=== PATIENT | female | born 2005 | race Caucasian/White ===

== ENCOUNTER 2024-04-17 23:07 | Observation (INO) | payer BC, OTHER, SELFPAY ==
--- NOTE | ~2024-04-17 | US_ITS ---
US renal BI Ordering provider: Rocky Rabago MD History: . Right flank pain . Comparison: None. Technique: Ultrasound bilateral kidneys. Findings: RIGHT KIDNEY: Measures 13.4x 5.7x 4.7 cm in length which is normal in size. No renal cysts. No renal mass or visualized echogenic stones. Otherwise, normal echotexture and contour. moderate hydronephro sis. Normal renal cortical thickness. LEFT KIDNEY: Measures 11.6x 5.6x 4.6 cm in length which is normal in size. No renal cysts. No renal m ass or visualized echogenic stones. Otherwise, normal echotexture and contour. moderate hydronephrosi s. Normal renal cortical thickness. BLADDER: Underfilled. Ureteral jets were not seen bilaterally. IMPRESSION: Bilateral mild to moderate hydronephrosis. Reviewed, dictated and finalized at location A. YLENE GAS COMPRESSOR
--- NOTE | ~2024-04-17 | US_ITS ---
Limited ABDOMINAL ULTRASOUND Ordering provider: Rocky Rabago MD History: . Right sided pain; Check gallbladder and appendix . Comparison: None. FINDINGS: LIVER: Normal size and echotexture. No focal hepatic lesions or perihepatic fluid collections are brett ntified. Normal flow of the portal vein. GALLBLADDER: Unremarkable. No evidence for stones, sludge, gallbladder wall thickening or pericholecy stic fluid collections. A negative sonographic Davila's sign was noted. BILIARY DUCTS: No evidence for intra or extrahepatic biliary dilation. Common bile duct measures 2.3 mm in diameter which is within normal limits. PANCREAS: Normal echotexture and size. tail is partly visualized. UPPER ABDOMINAL AORTA: Normal in caliber. IVC: Patent. FREE FLUID: None. IMPRESSION: Unremarkable limited ultrasound of the abdomen. Reviewed, dictated and finalized at location A. PICKLER
--- NOTE | ~2024-04-17 | US_ITS ---
EXAMINATION: US OB BPP wo non-stress DATE: 04/18/2024 17:19 INDICATION: Nonreactive nonstress test. Third trimester. TECHNIQUE: Real-time pelvic ultrasound was performed. COMPARISON: None. FINDINGS: There is a single living fetus in transverse lie. The placenta is posterior. heart rate is 139 beats per minute (bpm). Biophysical profile performed by the technologist: breathing (30 sec sustained breathing in 30 minutes): 2 out of 2 movement (3 gross body movements in 30 minutes): 2 out of 2 tone (one episode of riylxsd-nuyebhlea-idjuxoj limb movement): 2 out of 2 Amniotic fluid pocket (2 cm): 2 out of 2 Total score: 8 out of 8 IMPRESSION: 1. Single living fetus in transverse lie. 2. Biophysical profile 8 out of 8. Reviewed, dictated and finalized at location A. ELECTRICIAN
--- NOTE | ~2024-04-17 | MR_ITS ---
EXAMINATION: MR abdomen wo con DATE: 04/18/2024 10:58 INDICATION: Right abdominal pain. TECHNIQUE: Magnetic resonance imaging (MRI) of the abdomen was performed without intravenous contrast . COMPARISON: Ultrasound 04/18/2024 FINDINGS: The liver, gallbladder, spleen, pancreas, and adrenal glands are normal. There is mild bilateral hydr onephrosis and hydroureter. There are no dilated loops of bowel. The appendix is not visualized. Ther e is a single intrauterine gestation in vertex presentation. The placenta is posterior. IMPRESSION: 1. Mild bilateral maternal hydronephrosis and hydroureter. 2. Appendix not visualized. Reviewed, dictated and finalized at location A. NG COACH
[2024-04-17 23:30] VITALS: TEMP 36.3
[2024-04-17 23:34] VITALS: BP 136/77; PULSE 100
[2024-04-17 23:51] VITALS: BMI 35.2
--- NOTE | 2024-04-17 23:52 | OBADM ---
This patient, Melly Olvera, admitted to the OB room OB Post 117 for observation. Patient/family oriented to hospital policies and general routines including ID bracelet, bed and alarms, visiting hours, pain management, procedures, bathroom and other care routines, personal items, smoking policy, room service/diet, and visiting hours. Patient/Family are encouraged to report perceived risks to care and to ask questions if they do not understand what they are told or what they should do.
[2024-04-17] MEDS: ACETAMINOPHEN 500 MG TABLET 1000 MG PO (23:59)
[2024-04-18] VITALS (10 sets, daily range): BP systolic 116–126; BP diastolic 61–74; PULSE 79–96; RESP 16–18; TEMP 36.3–36.8; O2SAT 92–98
[2024-04-18 00:18] LABS: Appearance Urine Clear (Clear); Bilirubin Urine Negative (Negative); Blood Urine 2+ (Negative); Color Urine Yellow (Yellow); Glucose Urine UA Negative (Negative); Ketones Urine Negative (Negative); Leukocyte Esterase Ur 1+ LEU/UL (Negative); Nitrate Urine Negative (Negative); Protein Urine Negative (Negative); Specific Grav Ur 1.009 (1.001-1.035); Urobilinogen Urine 0.2 mg/dL (<2.0); pH Urine 6.5 (5.0-9.0)
[2024-04-18 00:19] LABS: Add Urine Microscopic? YES; Bacteria Urine Rare /hpf; Need Manual Microscopic Reviewed; Non Pathogenic Casts 0-2; Squamous Epithelial Cell Urine Occasional /hpf (Few); WBC Urine 0-5 /hpf (0-3)
[2024-04-18] MEDS: HYDROcodone/acetaminophen (*CRX) 10-325 MG TABLET 1 TAB PO (01:11)
[2024-04-18] MEDS: LACTATED RINGERS 1,000 ML 125 ML IV CONT ×3 (01:12→18:59)
[2024-04-18 01:21] LABS: Hematocrit 32.5 % (37.0-47.0); Hemoglobin 10.5 g/dL (12.0-15.0); Mean Corpuscular HGB Conc 32.3 g/dl (32-36); Mean Corpuscular Volume 80.4 fl (80-100); Platelet Count Result 190 k/mm3 (150-375); Red Blood Count 4.04 M/mm3 (4.2-5.4); Red Cell Distribution Width 13.3 % (11.5-14.5); White Blood Count 14.8 K/mm3 (4.5-10.0)
[2024-04-18 01:23] LABS: Alanine Aminotransferase 21 U/L (6-35); Albumin Level 3.9 g/dL (3.7-5.6); Alkaline Phosphatase 136 U/L (45-116); Anion Gap 11 mmol/L (4-12); Aspartate Amino Transferase 25 U/L (14-36); Bilirubin,Total 0.5 mg/dL (0.2-1.3); Blood Urea Nitrogen 8 mg/dL (8-21); Calcium 9.2 mg/dL (8.9-10.7); Carbon Dioxide 19 mmol/L (22-30); Chloride 104 mmol/L (98-107); Estimated CRCL calculation 88 ml/min; Estimated Glomerular Filt Rate > 60; Glucose 99 mg/dL (65-110); Potassium 3.7 mmol/L (3.4-5.0); Sodium 134 mmol/L (134-143)
--- NOTE | 2024-04-18 06:25 | P.HP_ITS ---
H&P: HPI History of Present Illness Date/Time: 04/18/24 06:25 Chief Complaint: right flank pain Narrative: 18 para 0 who receives her care from somewhere known seen complaining right flank pain. She was seen yesterday sent. She complains of and severe medial sided pain which required narcotics on admission she is admitted for observation Meds Home Medications and Allergies Allergies Allergy/AdvReac Type Severity Reaction Status Date / Time almond Allergy Rash Verified 04/17/24 23:48 Vital Signs Vital Signs - 24 hr 04/17/24 23:34 04/17/24 23:30 04/17/24 23:51 Temperature 97.4 F L Pulse Rate 100 Blood Pressure 136/77 Oxygen Delivery Room Air Exam Const: General: cooperative and healthy appearing Nutritional Appearance: average body habitus Orientation/consciousness: oriented to person, oriented to place and oriented to time HENMT: Head: normal to inspection Resp: Effort & Inspection: normal respiratory effort Cardio: Rate: regular rate Rhythm: regular rhythm Heart sounds: S1 normal heart sound present and S2 normal heart sound present GI: Inspection: normal to inspection ( gravid soft uterus) : General: Yes CVA tenderness on the right External Female Exam: normal external appearance H&P: Results Labs Labs: Short CBC 04/18/24 Range/Units 00:58 WBC 14.8 H (4.5-10.0) K/mm3 Hgb 10.5 L (12.0-15.0) g/dL Hct 32.5 L (37.0-47.0) % Plt Count 190 (150-375) k/mm3 BMP 04/18/24 00:58 Sodium 134 Potassium 3.7 Chloride 104 Carbon Dioxide 19 L BUN 8 Creatinine 1.00 Glucose 99 Calcium 9.2 Liver Function 04/18/24 Range/Units 00:58 Total Bilirubin 0.5 (0.2-1.3) mg/dL AST 25 (14-36) U/L ALT 21 (6-35) U/L Alkaline Phosphatase 136 H (45-116) U/L Albumin 3.9 (3.7-5.6) g/dL Urine 04/17/24 Range/Units 23:41 Urine Color Yellow (Yellow) Urine Appearance Clear (Clear) Urine pH 6.5 (5.0-9.0) Ur Specific [place] 1.009 (1.001-1.035) Urine Protein Negative (Negative) mg/dL Urine Glucose (UA) Negative (Negative) mg/dL Assessment and Plan Assessment and plan (1) Third trimester : Code(s): Z34.93 - Encounter for supervision of normal , unspecified, third trimester Status: Acute (2) Right flank pain: Code(s): R10.9 - Unspecified abdominal pain Status: Acute Assessment and Plan: with the patient's elevated white count but normal-appearing sample will check ultrasound to rule out kidney stones gallbladder or appendix today.
--- NOTE | 2024-04-18 06:28 | PC.NURSE ---
Dr. Luisana Rabago in to see and assess pt. Pt remains afebrile. Waiting for U/S. Pt remains NPO. Order received to start antibiotics. Pt instructed to let me know if her pain gets worse and I will get an order for IV pain medicine while she is NPO for the U/S of gallbladder.
[2024-04-18] MEDS: HYDROcodone/acetaminophen (*CRX) 5-325 MG TABLET 1 TAB PO ×3 (08:19→15:28)
--- NOTE | 2024-04-18 08:35 | PC.NURSE ---
Dr. Luisana Rabago returned page and informed of U/S report. Pt denies nausea, but doesn't feel hungry either. Pt did accept some applesauce.
--- NOTE | 2024-04-18 08:35 | PC.NURSE ---
Order received for MRI to evaluate ureters and appendix.
--- NOTE | 2024-04-18 08:42 | PC.NURSE ---
Called MRI department to see how to order MRI on this [address] Luisana Rabago wants her ureters and appendix evaluated. jewelry technician checking with radiologist and will call me back.
--- NOTE | 2024-04-18 10:04 | PC.NURSE ---
MRI control room informed pt has completed her MRI safety screening form.
--- NOTE | 2024-04-18 10:13 | PC.NURSE ---
Radiology transport here to take pt to MRI per wheelchair.
--- NOTE | 2024-04-18 11:05 | PC.NURSE ---
Pt is back from MRI and IV fluids restarted.
--- NOTE | 2024-04-18 12:18 | PC.NURSE ---
Dr. Luisana Rabago on unit and informed pt's pain decreased to a 4 after oral meds; MRI results not back yet.
--- NOTE | 2024-04-18 16:38 | PC.NURSE ---
Called Dr. Luisana Rabago. Informed of nonreactive NST with 15x15 variables. BPP ordered.
[2024-04-18] MEDS: HYDROcodone/acetaminophen (*CRX) 5-325 MG TABLET PO ×2 (18:22→22:17)
[2024-04-19 00:23] VITALS: BP 100/54; PULSE 94; TEMP 36.6
[2024-04-19 00:28] VITALS: BP 100/54; PULSE 94
[2024-04-19] MEDS: LACTATED RINGERS 1,000 ML 125 ML IV CONT (03:00)
[2024-04-19 05:55] VITALS: BP 119/64; PULSE 100; TEMP 36.6
[2024-04-19] MEDS: HYDROcodone/acetaminophen (*CRX) 5-325 MG TABLET PO (05:59)
[2024-04-19 06:05] LABS: Basophils Percent Auto 0.4 % (0.2-1.2); Eosinophils Absolute Auto 0.2 K/mm3 (0-0.3); Eosinophils Percent Auto 1.8 % (0-4.4); Hematocrit 30.2 % (37.0-47.0); Hemoglobin 9.7 g/dL (12.0-15.0); Immature Granulocyte Absolute 0.11 K/mm3 (0.00-0.031); Immature Granulocyte Percent A 1.3 % (0-0.5); Lymphocytes Absolute Auto 1.47 K/mm3 (0.9-3.2); Lymphocytes Percent Auto 17.7 % (18.3-44.2); Mean Corpuscular HGB Conc 32.1 g/dl (32-36); Mean Corpuscular Hemoglobin 26.3 pg (26-34); Mean Corpuscular Volume 81.8 fl (80-100); Mean Platelet Volume 9.5 fl (7.4-10.4); Monocytes Absolute Auto 0.6 K/mm3 (0.1-0.6); Monocytes Percent Auto 7.1 % (2.6-8.5); Neutrophils Percent Auto 71.7 % (45.5-73.1); Platelet Count Result 185 k/mm3 (150-375); Red Blood Count 3.69 M/mm3 (4.2-5.4); Red Cell Distribution Width 13.5 % (11.5-14.5); White Blood Count 8.3 K/mm3 (4.5-10.0)
--- NOTE | 2024-04-19 07:21 | PM.OBPNVD ---
OB - PN: Subj Subjective Date/time seen: 04/19/24 07:21 Patient comments: pain well controlled Narrative: feling better . will try eating OB - PN: Obj Data Labs 04/19/24 05:50 04/18/24 00:58 Labs: Laboratory Results - last 24 hr 04/19/24 05:50 WBC 8.3 RBC 3.69 L Hgb 9.7 L Hct 30.2 L MCV 81.8 MCH 26.3 MCHC 32.1 RDW 13.5 Plt Count 185 MPV 9.5 Immature Gran % (Auto) 1.3 H Neut % (Auto) 71.7 Lymph % (Auto) 17.7 L [place] % (Auto) 7.1 Eos % (Auto) 1.8 Baso % (Auto) 0.4 Lymph # (Auto) 1.47 [place] # (Auto) 0.6 Eos # (Auto) 0.2 Baso # (Auto) 0.0 Abs Immat Gran (auto) 0.11 H Absolute Neuts (auto) 6.0 Absolute Nucleated RBC 0.000 Nucleated RBC % 0.0 Imaging Radiologist's impression: Impressions Abdomen Ultrasound 04/18/24 08:08 IMPRESSION: Unremarkable limited ultrasound of the abdomen. Renal Ultrasound 04/18/24 08:13 IMPRESSION: Bilateral mild to moderate hydronephrosis. Abdomen MRI 04/18/24 16:04 IMPRESSION: 1. Mild bilateral maternal hydronephrosis and hydroureter. 2. Appendix not visualized. Obstetrics US/Biophysical Profile 04/18/24 17:19 IMPRESSION: 1. Single living fetus in transverse lie. 2. Biophysical profile 8 out of 8. OB - PN A/P Plan Comments: feeling better. try full diet Time Spent With Patient Time: Total time spent is greater than 50% in coordination of care (as documented) at patient's floor/unit and/or counseling patient: Exam Const: General: cooperative, healthy appearing and comfortable Nutritional Appearance: average body habitus Orientation/consciousness: oriented to person, oriented to place and oriented to time Resp: Effort & Inspection: normal respiratory effort Cardio: Rate: regular rate Rhythm: regular rhythm Heart sounds: S1 normal heart sound present and S2 normal heart sound present GI: Inspection: normal to inspection GI Palp: Yes abdominal tenderness (better)
--- NOTE | 2024-04-19 09:18 | PM.OBPNVD ---
OB - PN: Subj Subjective Date/time seen: 04/19/24 09:18 Patient comments: no complaints, pain well controlled and tolerating diet OB - PN: Obj Data Labs 04/19/24 05:50 04/18/24 00:58 Labs: Laboratory Results - last 24 hr 04/19/24 05:50 WBC 8.3 RBC 3.69 L Hgb 9.7 L Hct 30.2 L MCV 81.8 MCH 26.3 MCHC 32.1 RDW 13.5 Plt Count 185 MPV 9.5 Immature Gran % (Auto) 1.3 H Neut % (Auto) 71.7 Lymph % (Auto) 17.7 L [place] % (Auto) 7.1 Eos % (Auto) 1.8 Baso % (Auto) 0.4 Lymph # (Auto) 1.47 [place] # (Auto) 0.6 Eos # (Auto) 0.2 Baso # (Auto) 0.0 Abs Immat Gran (auto) 0.11 H Absolute Neuts (auto) 6.0 Absolute Nucleated RBC 0.000 Nucleated RBC % 0.0 Imaging Radiologist's impression: Impressions Abdomen MRI 04/18/24 16:04 IMPRESSION: 1. Mild bilateral maternal hydronephrosis and hydroureter. 2. Appendix not visualized. Obstetrics US/Biophysical Profile 04/18/24 17:19 IMPRESSION: 1. Single living fetus in transverse lie. 2. Biophysical profile 8 out of 8. OB - PN A/P Plan Comments: home on cephlexin /pain meds Time Spent With Patient Time: Total time spent is greater than 50% in coordination of care (as documented) at patient's floor/unit and/or counseling patient:
--- NOTE | 2024-04-19 09:19 | PM.DS ---
DS: Admitting Diagnosis Discharge Date 04/19/2024 Admitting Diagnosis right flank pain DS: Discharge Diagnosis Discharge Diagnosis (1) Right flank pain: Code(s): R10.9 - Unspecified abdominal pain Status: Acute (2) Third trimester : Code(s): Z34.93 - Encounter for supervision of normal , unspecified, third trimester Status: Acute DS: Summary Hospital Course Reason for hospitalization: patient was admitted as a walk-in at 33 weeks gestation. She had been seen the day before and [facility] with the same complaints and was sent home. She apparently has had an unremarkable to this point and is 33 weeks gestation she underwent a series of tests with an elevated white count at 15 which normalized the 2 8 upon discharge. She had an MRI which was unremarkable besides bilateral hydronephrosis. Her pain improved although she did require occasional [place]. She received Rocephin daily and remained afebrile Hospital Course: please see Time Spent with Patient Time attestation: Total time spent providing and/or coordinating discharge services: Exam Const: General: cooperative, healthy appearing and comfortable Nutritional Appearance: average body habitus Orientation/consciousness: oriented to person, oriented to place and oriented to time Resp: Effort & Inspection: normal respiratory effort Cardio: Rate: regular rate Rhythm: regular rhythm Heart sounds: S1 normal heart sound present and S2 normal heart sound present GI: Inspection: normal to inspection ( gravid soft uterus) DS: Data Data Completed and Pending Labs on day of discharge: Labs from last 24 hours 04/19/24 05:50 WBC 8.3 RBC 3.69 L Hgb 9.7 L Hct 30.2 L MCV 81.8 MCH 26.3 MCHC 32.1 RDW 13.5 Plt Count 185 MPV 9.5 Immature Gran % (Auto) 1.3 H Neut % (Auto) 71.7 Lymph % (Auto) 17.7 L [place] % (Auto) 7.1 Eos % (Auto) 1.8 Baso % (Auto) 0.4 Lymph # (Auto) 1.47 [place] # (Auto) 0.6 Eos # (Auto) 0.2 Baso # (Auto) 0.0 Abs Immat Gran (auto) 0.11 H Absolute Neuts (auto) 6.0 Absolute Nucleated RBC 0.000 Nucleated RBC % 0.0 Discharge Plan Discharge Attending physician on discharge: Rocky Dorsey Discharging Clinician: Rocky Dorsey Patient Disposition: Home, Self-Care Activity: may shower, no straining and pelvic rest Diet: heart healthy Wound Care Instructions: follow printed instructions Patient Instructions: Antibiotic Form Stand Alone Forms: General Discharge Information Follow-up/Referrals: Rocky Dorsey MD [Physician] - Discharge Medications: New hydrocodone-acetaminophen 5-325 mg tablet 1 tablet PO Q4H PRN (Reason: pain) Qty: 20 0RF ondansetron 4 mg tablet,disintegrating 4 mg PO Q6H PRN (Reason: nausea and vomiting) Qty: 20 0RF cephalexin 500 mg tablet 500 mg PO Q12H Qty: 14 0RF Continued Flintstones Gummies Tablet,Chewable 2 tablet PO DAILY Date of admission: 04/17/24 23:07 Primary Care Provider: UNKNOWN,DOCTOR Admitting Provider: Rocky Dorsey Attending physician on admission: Rocky Dorsey Condition: Stable
== END 2024-04-19 09:40 | disposition home or self-care (01) ==
PROVIDERS: Admitting Provider Obstetrics & Gynecology; Visit Provider Obstetrics & Gynecology
DX: O26.893 Other specified pregnancy related conditions, third trimester (principal); R10.9 Unspecified abdominal pain; O99.891 Other specified diseases and conditions complicating pregnancy; N13.30 Unspecified hydronephrosis; Z3A.33 33 weeks gestation of pregnancy
CPT/HCPCS: 36415; 59025; 74181; 76705; 76775; 76819; 80053; 81001; 85025; 85027; 96365; 96366; A9270; G0378; G0379; J0696; J7120

== ENCOUNTER 2024-05-08 12:43 | Observation (INO) | payer BC, OTHER, SELFPAY ==
[2024-05-08] VITALS (8 sets, daily range): BP systolic 114–126; BP diastolic 72–84; PULSE 86–93; RESP 16; TEMP 36.9; BMI 34.8
--- NOTE | 2024-05-08 13:31 | OBADM ---
This patient, Melly Olvera, admitted to the OB room 116 for observation. Patient/family oriented to hospital policies and general routines including ID bracelet, bed and alarms, visiting hours, pain management, procedures, bathroom and other care routines, personal items, smoking policy, room service/diet, and visiting hours. Patient/Family are encouraged to report perceived risks to care and to ask questions if they do not understand what they are told or what they should do.
--- NOTE | 2024-05-10 06:03 | PM.OBTRLD ---
OB - Triage/Final Diagnosis Visit Information Reason for evaluation: threatened labor Comments/Additional reasons for admission: I have assessed the risk for this patient, Melly Olvera, and determined that she would benefit from observation care.
== END 2024-05-08 15:34 | disposition home or self-care (01) ==
PROVIDERS: Admitting Provider Obstetrics & Gynecology; Visit Provider Obstetrics & Gynecology
DX: O47.03 False labor before 37 completed weeks of gestation, third trimester (principal); Z3A.36 36 weeks gestation of pregnancy
CPT/HCPCS: G0378; G0379

== ENCOUNTER 2024-05-30 04:53 | Inpatient (IN) | payer OTHER, SELFPAY ==
[2024-05-30] VITALS (271 sets, daily range): BP systolic 90–169; BP diastolic 53–156; PULSE 58–159; RESP 17–18; TEMP 36.5–37.6; O2SAT 90–100; BMI 35.7
[2024-05-30 05:30] LABS: Basophils Percent Auto 0.4 % (0.2-1.2); Eosinophils Absolute Auto 0.1 K/mm3 (0-0.3); Eosinophils Percent Auto 1.1 % (0-4.4); Hematocrit 31.6 % (37.0-47.0); Hemoglobin 10.1 g/dL (12.0-15.0); Immature Granulocyte Absolute 0.14 K/mm3 (0.00-0.031); Immature Granulocyte Percent A 1.4 % (0-0.5); Lymphocytes Absolute Auto 1.75 K/mm3 (0.9-3.2); Lymphocytes Percent Auto 17.7 % (18.3-44.2); Mean Corpuscular Hemoglobin 24.8 pg (26-34); Mean Corpuscular Volume 77.5 fl (80-100); Mean Platelet Volume 9.9 fl (7.4-10.4); Monocytes Absolute Auto 0.6 K/mm3 (0.1-0.6); Monocytes Percent Auto 6.3 % (2.6-8.5); Neutrophils Absolute Auto 7.2 K/mm3 (1.3-6.7); Neutrophils Percent Auto 73.1 % (45.5-73.1); Platelet Count Result 231 k/mm3 (150-375); Red Blood Count 4.08 M/mm3 (4.2-5.4); Red Cell Distribution Width 14.3 % (11.5-14.5); White Blood Count 9.9 K/mm3 (4.5-10.0)
[2024-05-30] MEDS: AMPICILLIN 2 GM/NS 100 ML 2 GM/100 ML BAG IVPB (05:34)
[2024-05-30] MEDS: LACTATED RINGERS 1,000 ML 125 ML IV CONT ×3 (05:35→17:34)
[2024-05-30] MEDS: DEXTROSE 5%/LACTATED RINGERS 500 ML 999 ML IV CONT (06:00)
--- NOTE | 2024-05-30 06:02 | LDADM ---
This patient, Melly Olvera, was admitted to Labor/Delivery/Recovery 104 on 05/30/24 at 04:53. Plans for labor, pain management and were discussed with patient. Patient/family oriented to hospital policies and general routines including ID bracelet, bed and alarms, visiting hours, pain management, procedures, bathroom and other care routines, personal items, smoking policy, room service/diet and guest tray routines, infant security routines, and visiting hours. Patient/Family are encouraged to report perceived risks to care and to ask questions if they do not understand what they are told or what they should do. See OBIX for further documentation.
[2024-05-30 06:20] LABS: HIV 1/2 Ab P24 Ag Result Negative (Negative)
--- NOTE | 2024-05-30 06:23 | PM.IMHP ---
H&P: HPI History of Present Illness Date/Time: 05/30/24 06:23 Chief Complaint: t term Narrative: anterior old 1 para 0 whose last menstrual period is unknown but EDC is 06/03/2024, confirmed by early ultrasound presents at39+ weeks gestation for induction of labor. She was favorable cervix. She transferred during her and had some right-sided pain. She is positive for group B strep Review of Systems Review of Systems: All systems reviewed & are unremarkable except as noted in HPI and below PMFSH Family History Family History (Updated 05/29/24 @ 11:53 by Anna Marie Horta, JEANNE) Other No pertinent family history Social History Social History Smoking status: Never smoker Substance use: never Do You Feel Safe in your Home?: Yes Lack of Transportation: No Lack of Food: Never True Current Housing: I Have Housing Concerned About Future Housing: No Difficulty Paying Gas/Electric Bills: No Difficulty Paying for Meds: No Currently Unemployed: No Education: High School Diploma/GED Difficulty w/ Childcare or Family Care: No Spiritual care concerns: No Meds Home Medications and Allergies Home Medications ?Medication ?Instructions ?Recorded ?Confirmed ?Type pediatric multivitamin no.49 2 tablet PO DAILY 04/18/24 05/29/24 History (Flintstones Gummies chewable tablet) Allergies Allergy/AdvReac Type Severity Reaction Status Date / Time almond Allergy Rash Verified 05/30/24 06:00 red dye AdvReac Vomiting Verified 05/30/24 06:00 Vital Signs Vital Signs - 24 hr 05/30/24 05:26 05/30/24 05:30 05/30/24 05:36 Pulse Rate 89 87 Blood Pressure 132/77 130/76 Pulse Oximetry 99 05/30/24 05:41 05/30/24 05:45 05/30/24 05:46 Pulse Rate 83 Blood Pressure 135/82 Pulse Oximetry 100 100 05/30/24 05:51 05/30/24 05:56 05/30/24 06:01 Pulse Rate 85 Blood Pressure 131/68 Pulse Oximetry 100 100 100 05/30/24 06:06 05/30/24 06:11 05/30/24 06:15 Pulse Rate 92 Blood Pressure 139/81 Pulse Oximetry 100 100 05/30/24 06:16 05/30/24 06:21 Pulse Rate Blood Pressure Pulse Oximetry 100 99 Exam Const: General: cooperative, healthy appearing and comfortable Nutritional Appearance: average body habitus HENMT: Head: normal to inspection Resp: Effort & Inspection: normal respiratory effort Cardio: Rate: regular rate Rhythm: regular rhythm Heart sounds: S1 normal heart sound present and S2 normal heart sound present GI: Inspection: normal to inspection ( gravid soft uterus) : Speculum Exam - Vagina: normal appearance of the vagina Speculum Exam - Cervix: normal appearance of the cervix ( cervix is 1 thick heart tones non-reassuring) H&P: Results Labs Labs: Short CBC 05/30/24 Range/Units 05:04 WBC 9.9 (4.5-10.0) K/mm3 Hgb 10.1 L (12.0-15.0) g/dL Hct 31.6 L (37.0-47.0) % Plt Count 231 (150-375) k/mm3 Assessment and Plan Assessment and plan (1) Term : Code(s): Z34.90 - Encounter for supervision of normal , unspecified, unspecified trimester Status: Acute Plan medical induction of labor. Spontaneous vaginal delivery expected. She is an epidural candidate
[2024-05-30] MEDS: OXYTOCIN 30 UNITS/NS 500 ML 30 UNITS/500 ML BAG IV CONT (06:56)
[2024-05-30 07:02] LABS: Rapid Plasma Reagin Non-Reactive (NonReactive)
[2024-05-30] MEDS: AMPICILLIN 1 GM/NS 50 ML 1 GM/50 ML BAG IVPB ×3 (10:07→18:30)
--- NOTE | 2024-05-30 11:06 | WPDANESEPPF ---
Anes - Initial Pre Proc Eval Date/Time: 05/30/24 11:06 Surgeon: Rocky Rabago MD Pre Op Diagnosis: IOL Patient Data Age: 18 Gender: F Height: 1.63 m Weight: 94.54 kg Last Vital Signs Temp 36.7 C 05/30/24 08:58 Pulse 86 05/30/24 11:01 BP 90/75 L 05/30/24 11:01 Pulse Ox 100 05/30/24 11:02 O2 Del Method Room Air 05/30/24 05:30 Allergies Allergy/AdvReac Type Severity Reaction Status Date / Time almond Allergy Rash Verified 05/30/24 06:00 red dye AdvReac Vomiting Verified 05/30/24 06:00 Home Medications ?Medication ?Instructions ?Recorded ?Confirmed ?Type pediatric multivitamin no.49 2 tablet PO DAILY 04/18/24 05/29/24 History (Flintstones Gummies chewable tablet) Laboratory Tests 05/30/24 05:04 WBC 9.9 K/mm3 (4.5-10.0) RBC 4.08 L M/mm3 (4.2-5.4) Hgb 10.1 L g/dL (12.0-15.0) Hct 31.6 L % (37.0-47.0) MCV 77.5 L fl (80-100) MCH 24.8 L pg (26-34) MCHC 32.0 g/dl (32-36) RDW 14.3 % (11.5-14.5) Plt Count 231 k/mm3 (150-375) MPV 9.9 fl (7.4-10.4) Immature Gran % (Auto) 1.4 H % (0-0.5) Neut % (Auto) 73.1 % (45.5-73.1) Lymph % (Auto) 17.7 L % (18.3-44.2) [place] % (Auto) 6.3 % (2.6-8.5) Eos % (Auto) 1.1 % (0-4.4) Baso % (Auto) 0.4 % (0.2-1.2) Lymph # (Auto) 1.75 K/mm3 (0.9-3.2) [place] # (Auto) 0.6 K/mm3 (0.1-0.6) Eos # (Auto) 0.1 K/mm3 (0-0.3) Baso # (Auto) 0.0 K/mm3 (0.0-0.1) Abs Immat Gran (auto) 0.14 H K/mm3 (0.00-0.031) Absolute Neuts (auto) 7.2 H K/mm3 (1.3-6.7) Absolute Nucleated RBC 0.000 K/mm3 (0.0-0.012) Nucleated RBC % 0.0 % (0.0-0.2) RPR Non-reactive (NonReactive) HIV 1&2 Ab/P24 Ag 4thGn Negative (Negative) Blood Type O Negative Antibody Screen Positive Antibody Identification Passive Due to RH Imm Glob Antigen Identification Not Reportable KRYSTAL, IgG Interpret Neg KRYSTAL, Poly Interpret Not Performed KRYSTAL, Complement Interp Negative Patient hx anesthesia problems: none Family hx anesthesia problems: none Results Review: All pre-operative results and documents have been reviewed as part of the pre-operative evaluation. [facility] Family History Family History Other No pertinent family history Social History Social History Smoking status: Never smoker Substance use: never Do You Feel Safe in your Home?: Yes Lack of Transportation: No Lack of Food: Never True Current Housing: I Have Housing Concerned About Future Housing: No Difficulty Paying Gas/Electric Bills: No Difficulty Paying for Meds: No Currently Unemployed: No Education: High School Diploma/GED Difficulty w/ Childcare or Family Care: No Spiritual care concerns: No Anes - Eval Final PreProcedure Day of Procedure 05/30/24 11:06 Patient weight: obese Neurological: alert and oriented ASA classification: II Emergent: no Anesthetic plan: proceed Anesthesia type and monitoring: regional epidural and standard monitoring Results Review: All pre-operative results and documents have been reviewed as part of the pre-operative evaluation. Informed Consent: The patient's anesthetic plan and its attendant risks and benefits were discussed with the patient/family/POA. Questions were solicited and answers provided to the satisfaction of the patient/family/POA.
--- NOTE | 2024-05-30 11:08 | PM.OBPNLAB ---
Pain Control Date/time seen: 05/30/24 11:08 Pain control: tolerating well and epidural Pelvic Exam Dilation (cm): 3
--- NOTE | 2024-05-30 16:31 | PM.OBPNLAB ---
Pain Control Date/time seen: 05/30/24 16:31 Pain control: tolerating well and epidural Pelvic Exam Dilation (cm): 6
[2024-05-30] MEDS: FAMOTIDINE 20 MG/2 ML VIAL IV PUSH (19:07)
--- NOTE | 2024-05-30 21:23 | WPDHPUPDATE1 ---
History and Physical Update Update Date/Time: 05/30/24 21:23 History and Physical has been reviewed, including an updated exam of the patient. There are NO changes in the patient's condition. Risks, benefits, and alternatives have been discussed and questions answered. Patient agrees to proceed with procedure. cx still 6 cm after 6 hours. fhts ok but less variabilty. offered section and reviewd risks
[2024-05-30] MEDS: ONDANSETRON INJ 4 MG/2 ML VIAL IV PUSH (21:24)
[2024-05-30] MEDS: AZITHROMYCIN 500 MG/NS 250 ML 500 MG/250 ML BAG 250 MG IVPB (21:38)
[2024-05-30] MEDS: ceFAZolin 2 GM/D5W 50 ML 2 GM/50 ML BAG IVPB (21:38)
--- NOTE | 2024-05-30 22:31 | W.PM.OBCSD ---
OB - Delivery Note Procedure Delivery date: 05/30/24 Pre-op diagnosis: Arrest of Decent Post-op Diagnosis: Same Induction method: AROM Delivery augmentation: Pitocin Delivery monitor: External FHT and Internal FHT Prior to decision for section, ACOG/SM labor guidelines were considered and discussed with the patient and staff. Decision made to proceed with the section.: Yes Procedure Performed: Primary Surgeon: Rocky Rabago MD Anesthesia type: Epidural Description of Procedure/Findings: Induction labor at 6cm and remained so for 6. Baby plantar her toes so decision was made for section after obtaining informed consent she was taken prepped draped in the normal sterile fashion placed in the supine position. Pfannenstiel incision for progressive layers to the. Fascia incised not fashion underlying muscles sharply dissected. Parietal by Nazia clamps and sharp dissection carried superiorly and inferiorly to bladder blade placed and a bladder flap formed. Bladder blade returned a low transverse incision made head delivered LIDA position. Anterior posterior shoulder delivered spontaneously. Cord clamped was cut in the passed off the table given Apgars 5 limited 8 [id number]. Cord blood was drawn. Placenta delivered intact spontaneously. Twenty of Pitocin placed IV to help firm uterus. After inspecting the uterus for any membranes or debris, the uterus was closed continuous running locking 0 Vicryl from lateral edge to lateral edge. This followed by 2nd imbricating running locking 0 Vicryl from lateral edge to lateral edge. Hemostasis was assured. The uterus returned the abdomen. After visualizing the ovaries and tubes to be normal. Hysterotomy incision inspected 1 last time to be hemostatic. Laps removed and accounted for. The fascia closed with continuous running 0 Vicryl from lateral edge to lateral edge. Irrigation the subcutaneous layer the skin closed with 4 Monocryl and glue. Blood loss was 385. All sponge, needle, instrument counts were correct. There were no immediate complications Estimated Blood Loss: 385 Drains: No Packing: No Pathology: None sent Complications: No immediate complications Condition: Stable Disposition: PACU Baby Date of : 05/30/24 Time of : 21:59 Gestational Age by Date: 39 Infant gender: Male Weight (pounds): 7 Weight (ounces): 14 presentation: vertex position: Right Occiput Anterior Placenta delivery description: Manual Removal Cord Vessel Description: 3 Vessels score one minute: 5 score five minutes: 8
--- NOTE | 2024-05-30 22:34 | PM.DS ---
DS: Admitting Diagnosis Discharge Date 06/01/2024 Admitting Diagnosis term DS: Discharge Diagnosis Discharge Diagnosis (1) Term : Code(s): Z34.90 - Encounter for supervision of normal , unspecified, unspecified trimester Status: Acute (2) Arrest of descent, delivered, current hospitalization: Code(s): O62.1 - Secondary uterine inertia Status: Acute DS: Summary Hospital Course Reason for hospitalization: patient was admitted for induction labor on 05/30/2024 the underwent low-transverse section Hospital Course: patient's hospital course unremarkable. She remained afebrile. She was up, voiding without difficulty, ambulating, eating regular and generally without complaints. Time Spent with Patient Time attestation: Total time spent providing and/or coordinating discharge services: Exam Const: General: cooperative, healthy appearing and comfortable Nutritional Appearance: average body habitus Orientation/consciousness: oriented to person, oriented to place and oriented to time HENMT: Head: normal to inspection Resp: Effort & Inspection: normal respiratory effort Cardio: Rate: regular rate Rhythm: regular rhythm Heart sounds: S1 normal heart sound present and S2 normal heart sound present GI: Inspection: normal to inspection and incision ( Wound is clean dry and intact) DS: Data Data Completed and Pending Labs on day of discharge: Labs from last 24 hours 05/30/24 05:04 WBC 9.9 RBC 4.08 L Hgb 10.1 L Hct 31.6 L MCV 77.5 L MCH 24.8 L MCHC 32.0 RDW 14.3 Plt Count 231 MPV 9.9 Immature Gran % (Auto) 1.4 H Neut % (Auto) 73.1 Lymph % (Auto) 17.7 L [place] % (Auto) 6.3 Eos % (Auto) 1.1 Baso % (Auto) 0.4 Lymph # (Auto) 1.75 [place] # (Auto) 0.6 Eos # (Auto) 0.1 Baso # (Auto) 0.0 Abs Immat Gran (auto) 0.14 H Absolute Neuts (auto) 7.2 H Absolute Nucleated RBC 0.000 Nucleated RBC % 0.0 RPR Non-reactive HIV 1&2 Ab/P24 Ag 4thGn Negative Blood Type O Negative Antibody Screen Positive Antibody Identification Passive Due to RH Imm Glob Antigen Identification Not Reportable KRYSTAL, IgG Interpret Neg KRYSTAL, Poly Interpret Not Performed KRYSTAL, Complement Interp Negative Discharge Plan Discharge Attending physician on discharge: Rocky Dorsey Discharging Clinician: Rocky Dorsey Patient Disposition: Home, Self-Care Activity: may shower, no straining, may drive after 2 weeks and pelvic rest Diet: heart healthy Wound Care Instructions: follow printed instructions Patient Instructions: Antibiotic Form Patient Language: E[place] Stand Alone Forms: General Discharge Information Follow-up/Referrals: Rocky Dorsey MD [Physician] - Discharge Medications: New hydrocodone-acetaminophen 5-300 mg tablet 1 tablet PO Q4H PRN (Reason: pain) Qty: 30 0RF Continued Flintstones Gummies Tablet,Chewable 2 tablet PO DAILY Date of admission: 05/30/24 04:53 Primary Care Provider: UNKNOWN,DOCTOR Admitting Provider: Rocky Dorsey Attending physician on admission: Rocky Dorsey Condition: Stable
[2024-05-30] MEDS: MEPERIDINE HCL INJ (*CRX) 50 MG/ML AMPUL 25 MG IV PUSH (22:50)
[2024-05-30] MEDS: KETOROLAC 15 MG/ML VIAL (*BKC) IV PUSH (23:23)
[2024-05-30] MEDS: OXYTOCIN 30 UNITS/NS 500 ML 30 UNITS/500 ML BAG 125 UNITS IV CONT (23:37)
[2024-05-31] VITALS (15 sets, daily range): BP systolic 113–138; BP diastolic 58–82; PULSE 92–115; RESP 18–19; TEMP 36.4–36.9; O2SAT 98–100
--- NOTE | 2024-05-31 01:00 | PC.NURSE ---
Patient transferred to post room #280 via ( bed ). Support person present. Oriented to unit, room, information board, rooming in, admission packet and security measures. Patient verbalizes understanding.
[2024-05-31] MEDS: HYDROcodone/acetaminophen (*CRX) 5-325 MG TABLET 1 TAB PO (01:46)
[2024-05-31] MEDS: ACETAMINOPHEN 325 MG TABLET 650 MG PO ×4 (05:00→23:54)
[2024-05-31 05:17] LABS: Basophils Percent Auto 0.2 % (0.2-1.2); Eosinophils Percent Auto 0.2 % (0-4.4); Hematocrit 24.4 % (37.0-47.0); Hemoglobin 7.7 g/dL (12.0-15.0); Immature Granulocyte Absolute 0.11 K/mm3 (0.00-0.031); Immature Granulocyte Percent A 0.8 % (0-0.5); Lymphocytes Absolute Auto 1.11 K/mm3 (0.9-3.2); Lymphocytes Percent Auto 8.5 % (18.3-44.2); Mean Corpuscular HGB Conc 31.6 g/dl (32-36); Mean Corpuscular Hemoglobin 24.7 pg (26-34); Mean Corpuscular Volume 78.2 fl (80-100); Mean Platelet Volume 10.2 fl (7.4-10.4); Monocytes Absolute Auto 0.9 K/mm3 (0.1-0.6); Monocytes Percent Auto 6.9 % (2.6-8.5); Neutrophils Absolute Auto 10.9 K/mm3 (1.3-6.7); Neutrophils Percent Auto 83.4 % (45.5-73.1); Platelet Count Result 185 k/mm3 (150-375); Red Blood Count 3.12 M/mm3 (4.2-5.4); Red Cell Distribution Width 14.6 % (11.5-14.5); White Blood Count 13.1 K/mm3 (4.5-10.0)
--- NOTE | 2024-05-31 07:29 | PM.OBPNVD ---
OB - PN: Subj Subjective Date/time seen: 05/31/24 07:29 Patient comments: no complaints and pain well controlled baby status: doing well OB - PN: Obj Data Labs 05/31/24 04:20 Labs: Laboratory Results - last 24 hr 05/30/24 05/31/24 05:04 04:20 WBC 13.1 H RBC 3.12 L Hgb 7.7 L Hct 24.4 L MCV 78.2 L MCH 24.7 L MCHC 31.6 L RDW 14.6 H Plt Count 185 MPV 10.2 Immature Gran % (Auto) 0.8 H Neut % (Auto) 83.4 H Lymph % (Auto) 8.[address] [place] % (Auto) 6.9 Eos % (Auto) 0.2 Baso % (Auto) 0.2 Lymph # (Auto) 1.11 [place] # (Auto) 0.9 H Eos # (Auto) 0.0 Baso # (Auto) 0.0 Abs Immat Gran (auto) 0.11 H Absolute Neuts (auto) 10.9 H Absolute Nucleated RBC 0.000 Nucleated RBC % 0.0 Antibody Identification Passive Due to RH Imm Glob Antigen Identification Not Reportable KRYSTAL, Complement Interp Negative OB - PN A/P Assessment and Plan (1) Arrest of descent, delivered, current hospitalization: Code(s): O62.1 - Secondary uterine inertia Status: Acute (2) Term : Code(s): Z34.90 - Encounter for supervision of normal , unspecified, unspecified trimester Status: Acute Plan begin iron Time Spent With Patient Time: Total time spent is greater than 50% in coordination of care (as documented) at patient's floor/unit and/or counseling patient: Review of Systems Review of Systems: All systems reviewed & are unremarkable except as noted in HPI and below Exam Const: General: cooperative, healthy appearing and comfortable Nutritional Appearance: average body habitus Orientation/consciousness: oriented to person, oriented to place and oriented to time HENMT: Head: normal to inspection Resp: Effort & Inspection: normal respiratory effort Cardio: Rate: regular rate Rhythm: regular rhythm Heart sounds: S1 normal heart sound present and S2 normal heart sound present GI: Inspection: normal to inspection and incision (cdi)
[2024-05-31] MEDS: POLYSACCHARIDE IRON COMPLEX 150 MG CAPSULE PO ×2 (08:41→17:24)
[2024-05-31] MEDS: SIMETHICONE 80 MG TAB.CHEW PO ×3 (08:41→17:24)
[2024-05-31] MEDS: DOCUSATE SODIUM 100 MG CAPSULE PO ×2 (08:41→17:24)
[2024-05-31] MEDS: IBUPROFEN 600 MG TABLET PO ×3 (11:12→23:54)
--- NOTE | 2024-05-31 11:40 | PC.NURSE ---
Introductions were made, admission folder given, lots of family in room visiting. RN then consulted with patient to assess needs related to . Discussed with mother her?plans to feed?her infant and the?experience so far. Mother plans on exclusively and will call out with the next feeding to assess feeding/latch. Resources provided for inpatient and outpatient services with the feeding sheet, mom/baby guide and name written on the communication board. Mother voiced understanding of information and will call if there is a request for assistance. Reported to the Primary RN.
--- NOTE | 2024-05-31 13:03 | WPDANLDPN2 ---
Anes-Prog Note L&D Date/Time: 05/31/24 13:03 Comfortable throughout: labor and section Neuraxial method: epidural Epidural/Spinal procedure site: clean & non-tender Neuro status: Neuro function grossly intact. Cardiovascular status: normal Respiratory status: normal Airway patency: baseline Mental status: baseline Post-Op hydration status: normal Vital Signs: Last Vital Signs Temp 36.7 C 05/31/24 12:27 Pulse 111 H 05/31/24 12:27 Resp 18 05/31/24 12:27 BP 115/75 05/31/24 12:27 Pulse Ox 100 05/31/24 12:27 O2 Del Method Room Air 05/30/24 22:37 Pain score (VAS): 2/10 I/O: Intake & Output 05/30/24 05/31/24 05/31/24 23:59 07:59 15:59 Intake Total 847.9 500 Output Total 385 1300 Balance 462.9 -800 Post-procedural complaints: none Patient feedback: Patient satisfied with anesthetic care.
--- NOTE | 2024-05-31 13:04 | WPDANLDNPN2 ---
Anes-Prog Note L&D-Neuraxial Date/Time: 05/31/24 13:04 Neuraxial medications: epidural PF morphine Opiod-related complaints: none Patient feedback: Patient satisfied with post-operative pain management.
[2024-05-31] MEDS: RHO(D) IMMUNE GLOBULIN 300 MCG/2 ML SYRINGE IM (13:16)
--- NOTE | 2024-05-31 17:49 | PC.NURSE ---
1430. observed mother latching to the right breast in cross cradle position. has a tendency to roll his upper lip under which often results in a clicking sound. Mom is able to latch infant independently. We discussed how to delatch infant if he is rolling his lip and help him relatch with both lips flanged out. Mother denies nipple pain/discomfort throughout feeding. Encouraged mother to keep awake and nursing at the breast for 15 minutes. Mother taught to listen for swallowing during feedings. Reviewed using the blue feeding sheet to record time and duration of feeding. Mother voiced understanding of the education shared, to call for assistance if the does not latch or if there is discomfort with . name/number on communication board. Reported to the Primary RN.?
--- NOTE | 2024-06-01 06:50 | P.PNOB_ITS ---
OB - PN: Subj Subjective Date/time seen: 06/01/24 06:50 Patient comments: no complaints, pain well controlled and tolerating diet [place] baby status: doing well OB - PN: Obj Data Labs 05/31/24 04:20 Labs: Laboratory Results - last 24 hr 05/31/24 08:46 Blood Type O Negative Antibody Screen Not Reportable Screen Negative Baby's Blood Type O pos Baby's KRYSTAL Positive Doses of RhIg Required 1 OB - PN A/P Assessment and Plan (1) Arrest of descent, delivered, current hospitalization: Code(s): O62.1 - Secondary uterine inertia Status: Acute (2) Term : Code(s): Z34.90 - Encounter for supervision of normal , unspecified, unspecified trimester Status: Acute Plan routine care Time Spent With Patient Time: Total time spent is greater than 50% in coordination of care (as documented) at patient's floor/unit and/or counseling patient: Review of Systems 2 Review of Systems: All systems reviewed & are unremarkable except as noted in HPI and below Exam 2 Const: General: cooperative, healthy appearing and comfortable Nutritional Appearance: average body habitus Orientation/consciousness: oriented to person, oriented to place and oriented to time Resp: Effort & Inspection: normal respiratory effort Cardio: Rate: regular rate Rhythm: regular rhythm Heart sounds: S1 normal heart sound present and S2 normal heart sound present GI: Inspection: normal to inspection and incision (cdi)
[2024-06-01] MEDS: ACETAMINOPHEN 325 MG TABLET 650 MG PO ×2 (07:11→13:21)
[2024-06-01] MEDS: POLYSACCHARIDE IRON COMPLEX 150 MG CAPSULE PO (07:11)
[2024-06-01] MEDS: IBUPROFEN 600 MG TABLET PO ×2 (07:11→13:21)
[2024-06-01] MEDS: SIMETHICONE 80 MG TAB.CHEW PO ×2 (07:11→13:21)
[2024-06-01 08:10] VITALS: BP 136/67; PULSE 93; RESP 18; TEMP 36.5; O2SAT 100
[2024-06-01] MEDS: MULTIVITS W-FE,MIN CHEWABLE TABLET 1 TABLET PO (09:47)
[2024-06-01] MEDS: DOCUSATE SODIUM 100 MG CAPSULE PO (09:47)
--- NOTE | 2024-06-01 10:33 | PC.NURSE ---
Patient viewed the discharge video Mother & Baby Care, The First Two Weeks . Patient was given the opportunity and encouraged to ask questions. Patient verbalized understanding of information shared and has been given the mother/baby guide for home reference.
--- NOTE | 2024-06-01 10:40 | PC.NURSE ---
Consulted with mother concerning needs and she shared her ability to independently latch infant optimally without pain. Mother is feeding appropriately for growth of infant and understands stimulating to eat if needed. Infant has had appropriate feedings in the last 24 hours meets the outcomes for weight, output, blood sugar and jaundice at this time. Mom wanted to start supplementing with formula this morning so we reviewed that in order to maintain a good supply she should pump each time baby takes a bottle and doesn't breastfeed. Reinforced understanding of milk production, transition of milk, signs of adequate intake, transition of stool, prevention/relief of engorgement, plugged ducts, mastitis, responsive watching for feeding cues, the different methods of stimulating infant to breastfeed 1-3 hours after the start of the last feeding, community resources, and when to call a provider using the resource of the feeding sheet along with the mom and baby guide. Mother declined a [facility] referral. She has a breast pump at home. Mother voiced understanding of the information shared, is confident to continue effectively her at home, when to call for assistance, denies any additional assistance or education at this time. Reported to the Primary RN.
[2024-06-04 11:19] VITALS: BP 140/75; PULSE 99; RESP 18; TEMP 36.9; O2SAT 100
== END 2024-06-01 14:25 | disposition home or self-care (01) | DRG 540 ==
LOC: ANHLDR 22:37 → ANHOB2 05-31 03:09
PROVIDERS: Admitting Provider Obstetrics & Gynecology; Visit Provider Obstetrics & Gynecology
PROC: 10D00Z1 Extraction of Products of Conception, Low, Open Approach (ICD-10-PCS; CPT 59514; principal; 2024-05-30 21:10)
DX: O99.824 Streptococcus B carrier state complicating childbirth (principal); Z37.0 Single live birth; Z3A.39 39 weeks gestation of pregnancy; O62.1 Secondary uterine inertia
CPT/HCPCS: 36415; 85025; 85461; 86592; 86703; 86850; 86880; 86900; 86901; 86902; 90384; A9270; G0432; J0290; J0456; J0690; J1885; J2175; J2274; J2371; J2405; J2590; J2704; J2790; J2795; J7120; J7121